=== PATIENT | male | born 1995 | race Caucasian/White ===

== ENCOUNTER 2019-11-06 20:13 | Emergency (ER) | payer BC, OTHER ==
--- NOTE | 2019-11-06 20:46 | RAD REPORT ---
EXAM DESCRIPTION: CT - Head Brain Wo Cont - 11/06/2019 8:38 pm CLINICAL HISTORY: SEIZURE Headache, drowsiness, seizure COMPARISON: HEAD BRAIN W O CONTRAST dated 05/31/2014 TECHNIQUE: All CT scans are performed using dose optimization technique as appropriate and may inclu de automated exposure control or mA/KV adjustment according to patient size. FINDINGS: No intracranial hemorrhage, hydrocephalus or extra-axial fluid collection.No areas of brai n edema or evidence of midline shift. The paranasal sinuses and mastoids are clear. The calvarium is intact. IMPRESSION: No acute intracranial abnormality.
[2019-11-06] MEDS ORDERED: NA CHLORIDE 0.9% 1,000 ML ONE (21:02)
[2019-11-06 21:20] LABS: Absolute Lymphocytes (CBC) 2.3 K/uL (0.7-4.9); Basophils % 0.6 % (0-1.3); Hematocrit 42.5 % (39.6-49.0); Lymphocytes % 34.4 % (15.3-44.8); MPV 10.2 fL (7.6-11.3); RBC Red Blood Cell Count 4.64 M/uL (4.33-5.43)
[2019-11-06 21:26] LABS: ALT/SGPT 63 U/L (12-78); AST/SGOT 52 U/L (15-37); Albumin 3.7 g/dL (3.4-5.0); Alkaline Phosphatase 82 U/L (45-117); BUN Blood Urea Nitrogen 16 mg/dL (7-18); Bicarbonate 30 mmol/L (21-32); Bilirubin Direct 0.2 mg/dL (0-0.2); Bilirubin Total 0.4 mg/dL (0.2-1.0); Glucose Level 114 mg/dL (74-106); Potassium 3.7 mmol/L (3.5-5.1); Protein, Total 6.7 g/dL (6.4-8.2); Sodium Level 141 mmol/L (136-145)
[2019-11-06 21:29] LABS: Protime INR 1.07
--- NOTE | 2019-11-06 21:30 | ER ---
Nurse's Notes [facility] Name: Costa Lujan Age: 24 yrs Sex: Male : 1995 Arrival Date: 11/06/2019 Time: 20:15 Bed 25 Private MD: Diagnosis: Epileptic seizures related to external causes;Abuse of other non-psychoactive substances Presentation: 11/05 20:20 Chief complaint: Patient states: smoked synthetic marijuana today, had not smoked in a iw while, been about a month, EMs reports pt was actively seizing on scene, tonic clonic, then pt suddenly stopped, sat up and started answering questions, no meds given, no hx of seizure, A\T\OX3 , pt states he just drove 19 hours from [place]. Coronavirus screen: At this time, the client does not indicate any symptoms associated with coronavirus-19. Ebola Screen: Patient negative for fever greater than or equal to 101.5 degrees Fahrenheit, and additional compatible Ebola Virus Disease symptoms Patient denies exposure to infectious person. Patient denies travel to an Ebola-affected area in the 21 days before illness onset. No symptoms or risks identified at this time. Initial Sepsis Screen: Does the patient meet any 2 criteria? No. Patient's initial sepsis screen is negative. Does the patient have a suspected source of infection? No. Patient's initial sepsis screen is negative. Risk Assessment: Do you want to hurt yourself or someone else? Patient reports no desire to harm self or others. Onset of symptoms was November 06, 2019. 20:20 Method Of Arrival: EMS: [facility] iw 20:20 Acuity: SABINO 3 iw 20:26 Care prior to arrival: IV initiated. 18 GA, in the right antecubital area. iw Triage Assessment: 20:15 General: Appears in no apparent distress. comfortable, Behavior is calm, cooperative. ls4 Pain: Denies pain. Neuro: Level of Consciousness is awake, alert, obeys commands, Oriented to person, place, time, situation. Historical: - Allergies: 20:25 No Known Allergies; iw - Home Meds: 20:25 None [Active]; iw - PMHx: 20:25 None; iw - PSHx: 20:25 None; iw - Immunization history:: Adult Immunizations not up to date. - Social history:: Smoking status: Patient reports the use of cigarette tobacco products, smokes one pack cigarettes per day. Patient uses alcohol, only on a social basis. street drugs. - Family history:: not pertinent. Screenin:15 Abuse screen: Denies threats or abuse. Denies injuries from another. Nutritional ls4 screening: No deficits noted. Tuberculosis screening: No symptoms or risk factors identified. Fall Risk None identified. Assessment: 20:15 General: Appears in no apparent distress. Behavior is calm, cooperative. Pain: Denies ls4 pain. Neuro: Level of Consciousness is awake, alert, obeys commands, confused, Oriented to person, place, time, situation, Seizure activity reported prior to arrival. Respiratory: Respiratory effort is even, unlabored, Respiratory pattern is regular, Breath sounds are clear bilaterally. Vital Signs: 20:15 BP 116 / 74; Pulse 59; Resp 16; Temp 98.4(O); Pulse Ox 99% on R/A; Pain 0/10; ls4 20:20 BP 107 / 77; Pulse 77; Resp 18 S; Temp 98.5(TE); Pulse Ox 97% on R/A; Weight 61.23 kg; iw Height 5 ft. 10 in. (177.80 cm); 20:20 Body Mass Index 19.37 (61.23 kg, 177.80 cm) iw [place] Coma Score: 20:15 Eye Response: spontaneous(4). Verbal Response: oriented(5). Motor Response: obeys ls4 commands(6). Total: 15. ED Course: 20:15 Patient arrived in ED. am2 20:15 Patient has correct armband on for positive identification. Bed in low position. Call ls4 light in reach. Seizure precautions initiated. Side rails up X2. equipment monitor phototypesetting on. Pulse ox on. NIBP on. Warm blanket given. Verbal reassurance given. 20:15 No provider procedures requiring assistance completed. IV discontinued, intact, ls4 bleeding controlled, No redness/swelling at site. Pressure dressing applied. 20:24 Triage completed. iw 20:25 Johnnie Ag MD is Attending Physician. tatiana 20:25 Arm band placed on. iw 20:37 CT Head Brain wo Cont In Process Unspecified. EDMS 20:50 Sophie Peguero RN is Primary Nurse. ls4 20:57 Initial lab(s) drawn, by me, sent to lab. Maintain EMS IV. Dressing intact. Good blood iw return noted. Site clean \T\ dry. Gauge \T\ site: 18 RAC. 21:29 Bakari Valdez MD is Referral Physician. [facility] Administered Medications: 20:50 Drug: NS 0.9% 1000 ml Route: IV; Rate: 1 bolus; Site: right antecubital; ls4 21:50 Follow up: IV Intake: 1000ml ls4 21:50 Follow up: IV Status: Completed infusion ls4 Intake: 21:50 IV: 1000ml; Total: 1000ml. ls4 Outcome: 21:29 Discharge ordered by . [facility] 22:11 Discharged to home ambulatory. ls4 22:11 Condition: good 22:11 Discharge instructions given to patient, Instructed on discharge instructions, follow up and referral plans. medication usage, Demonstrated understanding of instructions, follow-up care. 22:43 Patient left the ED. ls4 Signatures: Dispatcher [employer] EDMS Johnnie Ag MD MD cha Williams, Irene, RN RN Carmen Natarajan Sophie Richter, RN RN ls4 Corrections: (The following items were deleted from the chart) 20:25 20:20 BP 107 / 77; Pulse 77bpm; Resp 18bpm; Spontaneous; Pulse Ox 97% RA; 61.23 kg; iw Height 5 ft. 10 in.; BMI: 19.3; iw
--- NOTE | 2019-11-06 21:30 | EDPHYS ---
Physician Documentation [facility] Name: Costa Lujan Age: 24 yrs Sex: Male : 1995 Arrival Date: 11/06/2019 Time: 20:15 Bed 25 Private MD: ED Physician Johnnie Ag HPI: 11/05 21:22 This 24 yrs old Male presents to ER via EMS with complaints of Seizure, Drug tatiana Abuse. 21:22 The patient presents after having a single isolated seizure. Character of seizure(s): tatiana Loss of consciousness: the patient experienced loss of consciousness, Motor activity: generalized, Incontinence: none, Apnea: the patient did not experience apnea, Circulation: the patient did not experience evidence of pulse disturbance. Seizure onset: just prior to arrival. Context: the seizure(s) was witnessed, by family, occurred at home, occurred while the patient was smoking synthetic. Seizure Hx: the patient has no previous seizure history. Associated injury: The patient did not suffer any apparent associated injury. EMS care: none. The patient has not experienced similar symptoms in the past. Historical: - Allergies: 20:25 No Known Allergies; iw - Home Meds: 20:25 None [Active]; iw - PMHx: 20:25 None; iw - PSHx: 20:25 None; iw - Immunization history:: Adult Immunizations not up to date. - Social history:: Smoking status: Patient reports the use of cigarette tobacco products, smokes one pack cigarettes per day. Patient uses alcohol, only on a social basis. street drugs. - Family history:: not pertinent. ROS: 21:22 Constitutional: Negative for fever, chills, and weight loss, Eyes: Negative for injury, tatiana pain, redness, and discharge, ENT: Negative for injury, pain, and discharge, Neck: Negative for injury, pain, and swelling, Cardiovascular: Negative for chest pain, palpitations, and edema, Respiratory: Negative for shortness of breath, cough, wheezing, and pleuritic chest pain, Abdomen/GI: Negative for abdominal pain, nausea, vomiting, diarrhea, and constipation, Back: Negative for injury and pain, : Negative for injury, bleeding, discharge, and swelling, MS/Extremity: Negative for injury and deformity, Skin: Negative for injury, rash, and discoloration, Psych: Negative for depression, anxiety, suicide ideation, homicidal ideation, and hallucinations, Allergy/Immunology: Negative for hives, rash, and allergies, Endocrine: Negative for neck swelling, polydipsia, polyuria, polyphagia, and marked weight changes, Hematologic/Lymphatic: Negative for swollen nodes, abnormal bleeding, and unusual bruising. 21:22 Neuro: Positive for seizure activity. Exam: 21:22 Constitutional: This is a well developed, well nourished patient who is awake, alert, tatiana and in no acute distress. Head/Face: Normocephalic, atraumatic. Eyes: Pupils equal round and reactive to light, extra-ocular motions intact. Lids and lashes normal. Conjunctiva and sclera are non-icteric and not injected. Cornea within normal limits. Periorbital areas with no swelling, redness, or edema. ENT: Nares patent. No nasal discharge, no septal abnormalities noted. Tympanic membranes are normal and external auditory canals are clear. Oropharynx with no redness, swelling, or masses, exudates, or evidence of obstruction, uvula midline. Mucous membranes moist. Neck: Trachea midline, no thyromegaly or masses palpated, and no cervical lymphadenopathy. Supple, full range of motion without nuchal rigidity, or vertebral point tenderness. No Meningismus. Chest/axilla: Normal chest wall appearance and motion. Nontender with no deformity. No lesions are appreciated. Cardiovascular: Regular rate and rhythm with a normal S1 and S2. No gallops, murmurs, or rubs. Normal PMI, no JVD. No pulse deficits. Respiratory: Lungs have equal breath sounds bilaterally, clear to auscultation and percussion. No rales, rhonchi or wheezes noted. No increased work of breathing, no retractions or nasal flaring. Abdomen/GI: Soft, non-tender, with normal bowel sounds. No distension or tympany. No guarding or rebound. No evidence of tenderness throughout. Back: No spinal tenderness. No costovertebral tenderness. Full range of motion. Skin: Warm, dry with normal turgor. Normal color with no rashes, no lesions, and no evidence of cellulitis. MS/ Extremity: Pulses equal, no cyanosis. Neurovascular intact. Full, normal range of motion. Neuro: Awake and alert, GCS 15, oriented to person, place, time, and situation. Cranial nerves II-XII grossly intact. Motor strength 5/5 in all extremities. Sensory grossly intact. Cerebellar exam normal. Normal gait. Psych: Awake, alert, with orientation to person, place and time. Behavior, mood, and affect are within normal limits. 21:22 Musculoskeletal/extremity: DVT Exam: No signs of deep vein thrombosis. no pain, no swelling, no tenderness, negative Homans' sign noted on exam, no appreciated bluish discoloration, no erythema, no increased warmth. 21:31 ECG was reviewed by the Attending Physician. [facility] Vital Signs: 20:15 BP 116 / 74; Pulse 59; Resp 16; Temp 98.4(O); Pulse Ox 99% on R/A; Pain 0/10; ls4 20:20 BP 107 / 77; Pulse 77; Resp 18 S; Temp 98.5(TE); Pulse Ox 97% on R/A; Weight 61.23 kg; iw Height 5 ft. 10 in. (177.80 cm); 20:20 Body Mass Index 19.37 (61.23 kg, 177.80 cm) iw [place] Coma Score: 20:15 Eye Response: spontaneous(4). Verbal Response: oriented(5). Motor Response: obeys ls4 commands(6). Total: 15. MDM: 20:25 Patient medically screened. [facility] 21:24 Differential diagnosis: drug overdose, cardiac arrhythmia, seizure, TIA. Data reviewed: [facility] vital signs, nurses notes, lab test result(s), EKG, radiologic studies, CT scan. Data interpreted: import dispatcher: rate is 77 beats/min, rhythm is regular, Pulse oximetry: on room air is 97 %. Test interpretation: by ED physician or midlevel provider: ECG. Counseling: I had a detailed discussion with the patient and/or guardian regarding: the historical points, exam findings, and any diagnostic results supporting the discharge/admit diagnosis, lab results, radiology results, the need for outpatient follow up, for definitive care, a neurologist. ED course: pt at baseline, will refrain from drug use. 11/05 20: Order name: Acetaminophen; Complete Time: :28 [facility] 11/05 20:27 Order name: Basic Metabolic Panel; Complete Time: :28 [facility] 11/05 20: Order name: CBC with Diff; Complete Time: : [facility] 11/05 20:27 Order name: ETOH Level; Complete Time: 21:28 [facility] 11/05 20:27 Order name: Hepatic Function; Complete Time: 21:28 [facility] 11/05 20:27 Order name: PT-INR [facility] 11/05 20:27 Order name: Ptt, Activated [facility] 11/05 20:27 Order name: Salicylate; Complete Time: 21:21 [facility] 11/05 20:27 Order name: EKG; Complete Time: 20:27 [facility] 11/05 20:27 Order name: EKG - Nurse/Tech; Complete Time: 21:02 [facility] 11/05 20:27 Order name: IV Saline Lock; Complete Time: 20:57 [facility] 11/05 20:27 Order name: CT Head Brain wo Cont; Complete Time: 21:21 [facility] 11/05 20: Order name: Labs collected and sent; Complete Time: 20:57 [facility] 11/05 20:27 Order name: Seizure Precautions; Complete Time: 20:53 [facility] EC:31 Rate is 59 beats/min. Rhythm is regular. QRS [place] is Normal. [place] interval is normal. QRS tat[place] interval is normal. QT interval is normal. No Q waves. T waves are Normal. No ST changes noted. Clinical impression: Sinus bradycardia and No evidence of ischemia. Interpreted by me. Reviewed by me. Administered Medications: 20:50 Drug: NS 0.9% 1000 ml Route: IV; Rate: 1 bolus; Site: right antecubital; ls4 21:50 Follow up: IV Intake: 1000ml ls4 21:50 Follow up: IV Status: Completed infusion ls4 Disposition: 11/06/19 21:29 Discharged to Home. Impression: Epileptic seizures related to external causes, Abuse of other non-psychoactive substances. - Condition is Stable. - Discharge Instructions: Substance Use Disorder, Nonepileptic Seizures, Seizure, Adult, Seizure, Adult, [id number]. - Medication Reconciliation Form, Thank You Letter, Antibiotic Education, Prescription Opioid Use form. - Follow up: Private Physician; When: 2 - 3 days; Reason: Recheck today's complaints, Continuance of care, Re-evaluation by your physician. Follow up: Bakari Valdez MD; When: 2 - 3 days; Reason: Recheck today's complaints, Re-evaluation by your physician. - Problem is new. - Symptoms have improved. Signatures: Dispatcher [employer] EDMS Johnnie Ag MD MD cha Williams, Irene, RN RN iw Sophie Peguero RN RN ls4 Corrections: (The following items were deleted from the chart) 21:53 20:27 Urine Dipstick-Ancillary ordered. tatiana ls4 22:43 21:29 11/06/2019 21:29 Discharged to Home. Impression: Epileptic seizures related to ls4 external causes; Abuse of other non-psychoactive substances. Condition is Stable. Forms are Medication Reconciliation Form, Thank You Letter, Antibiotic Education, Prescription Opioid Use. Follow up: Private Physician; When: 2 - 3 days; Reason: Recheck today's complaints, Continuance of care, Re-evaluation by your physician. Follow up: Bakari Valdez; When: 2 - 3 days; Reason: Recheck today's complaints, Re-evaluation by your physician. Problem is new. Symptoms have improved. tatiana
--- NOTE | 2019-11-07 07:53 | EKG ---
Test Date: 2019-11-06 Test Time: 21:13:00 Diesel Trailer Mechanic: MARIPOSA MEASUREMENT RESULTS: Intervals: Rate: 62 MD: 178 QRSD: 102 QT: 406 QTc: 412 [place]: P: 68 MD: 178 QRS: 84 T: 64 INTERPRETIVE STATEMENTS: Normal sinus rhythm Septal infarct, age undetermined Abnormal ECG Compared to ECG 05/31/2014 04:56:53 Myocardial infarct finding now present Sinus bradycardia no longer present Early repolarization no longer present Electronically Signed On 11-07-19 07:53:08 CDT by Alexey Dang
--- NOTE | 2019-11-08 05:50 | EKG ---
Test Date: 2019-11-06 Test Time: 21:13:28 Travel Physical Therapist: MARIPOSA MEASUREMENT RESULTS: Intervals: Rate: 59 CA: 186 QRSD: 102 QT: 414 QTc: 409 [place]: P: 70 CA: 186 QRS: 85 T: 68 INTERPRETIVE STATEMENTS: Sinus bradycardia with sinus arrhythmia Septal infarct, age undetermined Abnormal ECG Compared to ECG 11/06/2019 21:13:00 Sinus rhythm no longer present Myocardial infarct finding still present Electronically Signed On 11-08-19 05:45:35 CDT by Alexey Dang
== END 2019-11-06 22:43 | disposition home or self-care (01) ==
LOC: ER 20:13
DX: F55.8 Abuse of other non-psychoactive substances (principal); F17.210 Nicotine dependence, cigarettes, uncomplicated
CPT/HCPCS: 93005 ×2; 85025; 80048; 36415; 80320; 80329 ×2; 85610; 80076; 85730; 70450; 96360; 99284; J7030

== ENCOUNTER 2020-09-08 11:51 | Emergency (ER) | payer BC ==
--- OUTSIDE RECORDS SUMMARY | 2020-09-08 11:53 | XMS REPORT | Continuity of Care Document ---
:1995 Author Organization [facility] t Address [facility] [address] [place] [address] [place] [id number] Care Team Providers Name Role Phone Unavailable Unavailable Unavailable Problems This patient has no known problems. Allergies, Adverse Reactions, Alerts This patient has no known allergies or adverse reactions. Medications This patient has no known medications. Procedures This patient has no known procedures. Results This patient has no known results.
--- NOTE | 2020-09-08 12:59 | EDPHYS ---
Physician Documentation [facility] Name: Costa Lujan Age: 25 yrs Sex: Male : 1995 Arrival Date: 09/08/2020 Time: 11:53 Bed 24 Private MD: ED Physician Minor Victor HPI: 09/08 12:55 This 25 yrs old Male presents to ER via Ambulatory with complaints of Bee kb Sting - Arm won't stop swelling. 12:55 The patient presents with localized swelling. Onset: The symptoms/episode kb began/occurred yesterday. Associated signs and symptoms: Pertinent positives: swelling, Pertinent negatives: abdominal pain, Altered mental status chest pain, dysphagia, fever, headache, hives, Light headed nausea, rash, shortness of breath, Syncope vomiting. Possible causes: wasp. At home the patient or guardian has treated the symptoms with Benadryl. Severity of symptoms: At their worst the symptoms were moderate in the emergency department the symptoms are unchanged. The patient has not experienced similar symptoms in the past. The patient has not recently seen a physician. Pt reports he was stung by red wasp yesterday and the swelling is moving up his arm. Denies pain, fever. . Historical: - Allergies: 12:19 No Known Allergies; jl7 - Home Meds: 12:19 None [Active]; jl7 - PMHx: 12:19 None; jl7 - PSHx: 12:19 None; jl7 - Immunization history:: Adult Immunizations unknown, Client reports having NOT received the Covid vaccine. - Social history:: Smoking status: Patient reports the use of cigarette tobacco products, smokes one pack cigarettes per day. ROS: 12:51 Constitutional: Negative for fever, chills, and weight loss. kb 12:51 Skin: Positive for swelling, of the right hand and right forearm. 12:51 All other systems are negative. Exam: 12:54 Constitutional: This is a well developed, well nourished patient who is awake, alert, kb and in no acute distress. Head/Face: Normocephalic, atraumatic. ENT: Moist Mucous membranes Respiratory: Respirations even and unlabored. No increased work of breathing, no retractions or nasal flaring. Neuro: Awake and alert, GCS 15, oriented to person, place, time, and situation. Moves all extremities. Normal gait. Psych: Awake, alert, with orientation to person, place and time. Behavior, mood, and affect are within normal limits. 12:54 Musculoskeletal/extremity: Extremities: grossly normal except: noted in the right forearm and right hand: swelling, ROM: intact in all extremities, Circulation is intact in all extremities. Sensation intact. Compartment Syndrome exam of affected extremity: no pain, with active ROM, no numbness, no tingling, no sensation deficit, no palor, no weak pulses. 12:54 Skin: Appearance: normal except for affected area, Color: normal in color, Temperature: normal temperature, swelling, noted on the right forearm and right hand, that are moderate. Vital Signs: 12:17 BP 139 / 92; Pulse 67; Resp 16; Temp 97.9; Pulse Ox 98% on R/A; Weight 58.97 kg; Height jl7 5 ft. 11 in. (180.34 cm); Pain 0/10; 12:37 BP 131 / 89; Pulse 63; Resp 16; Pulse Ox 100% on R/A; vg1 12:17 Body Mass Index 18.13 (58.97 kg, 180.34 cm) jl7 MDM: 12:21 Patient medically screened. kb 12:49 Data reviewed: vital signs, nurses notes. Data interpreted: Pulse oximetry: on room air kb is 100 %. Interpretation: normal. Counseling: I had a detailed discussion with the patient and/or guardian regarding: the historical points, exam findings, and any diagnostic results supporting the discharge/admit diagnosis, the need for outpatient follow up, a family practitioner, to return to the emergency department if symptoms worsen or persist or if there are any questions or concerns that arise at home. Administered Medications: 13:07 Drug: Pepcid (famotidine) 20 mg Route: PO; vg1 13:08 Follow up: Response: Medication administered at discharge. vg1 13:08 Drug: Decadron (dexamethasone) 10 mg Route: IM; Site: right deltoid; vg1 13:08 Follow up: Response: Medication administered at discharge. vg1 Disposition: 09/09 08:40 Co-signature as Attending Physician, Minor Victor MD I agree with the assessment and kdr plan of care. Disposition Summary: 09/08/20 12:58 Discharge Ordered Location: Home kb Condition: Stable kb Diagnosis - Insect allergy status kb - Insect bite (nonvenomous) of right hand kb Followup: kb - With: Emergency Department - When: As needed - Reason: Worsening of condition Followup: kb - With: Private Physician - When: 2 - 3 days - Reason: Recheck today's complaints, Continuance of care, Re-evaluation by your physician Discharge Instructions: - Discharge Summary Sheet kb - Bee, Wasp, or Hornet Sting, Adult kb - Allergies, Pediatric kb Forms: - Medication Reconciliation Form kb - Thank You Letter kb - Antibiotic Education kb - Prescription Opioid Use kb Prescriptions: - Cephalexin 500 mg Oral Capsule - take 1 capsule by ORAL route every 8 hours for 10 days; 30 capsule; Refills: 0, kb Product Selection Permitted - Pepcid 20 mg Oral Tablet - take 1 tablet by ORAL route every 12 hours for 5 days; 10 tablet; Refills: 0, kb Product Selection Permitted - Prednisone 20 mg Oral Tablet - take 1 tablet by ORAL route once daily for 5 days; 5 tablet; Refills: 0, kb Product Selection Permitted Signatures: Lina Jean FNP-C CHEN-Minor Dickerson MD MD kdr Leal, Jahala, RN RN jl7 Jewell Zabala RN RN vg1
--- NOTE | 2020-09-08 12:59 | ER ---
Nurse's Notes [facility] Name: Costa Lujan Age: 25 yrs Sex: Male : 1995 Arrival Date: 09/08/2020 Time: 11:53 Bed 24 Private MD: Diagnosis: Insect allergy status;Insect bite (nonvenomous) of right hand Presentation: 09/08 12:17 Chief complaint: Patient states: Red wasp sting yesterday to right pointer finger, jl7 swelling has increased past the elbow since last night, denies pain, denies SOB. Coronavirus screen: Client denies travel out of the [place] in the last 14 days. At this time, the client does not indicate any symptoms associated with coronavirus-19. Ebola Screen: No symptoms or risks identified at this time. Initial Sepsis Screen: Does the patient meet any 2 criteria? No. Patient's initial sepsis screen is negative. Does the patient have a suspected source of infection? No. Patient's initial sepsis screen is negative. Risk Assessment: Do you want to hurt yourself or someone else? Patient reports no desire to harm self or others. Onset of symptoms was September 07, 2020. 12:17 Method Of Arrival: Ambulatory jl7 12:17 Acuity: SABINO 4 jl7 13:09 Anaphylaxis evaluation, no signs or symptoms of anaphylaxis were noted. vg1 Historical: - Allergies: 12:19 No Known Allergies; jl7 - Home Meds: 12:19 None [Active]; jl7 - PMHx: 12:19 None; jl7 - PSHx: 12:19 None; jl7 - Immunization history:: Adult Immunizations unknown, Client reports having NOT received the Covid vaccine. - Social history:: Smoking status: Patient reports the use of cigarette tobacco products, smokes one pack cigarettes per day. Screenin:37 Abuse screen: Denies threats or abuse. Nutritional screening: No deficits noted. vg1 Tuberculosis screening: No symptoms or risk factors identified. Fall Risk No fall in past 12 months (0 pts). No secondary diagnosis (0 pts). No IV (0 pts). Ambulatory Aid- None/Bed Rest/Nurse Assist (0 pts). Gait- Normal/Bed Rest/Wheelchair (0 pts) Mental Status- Oriented to own ability (0 pts). Total Han Fall Scale indicates No Risk (0-24 pts). Assessment: 12:37 General: Appears in no apparent distress. comfortable, Behavior is calm, cooperative. vg1 Pain: Denies pain. Neuro: Level of Consciousness is awake, alert, obeys commands, Oriented to person, place, time, situation. Cardiovascular: Patient's skin is warm and dry. Respiratory: Airway is patent Respiratory effort is even, unlabored, Breath sounds are clear bilaterally. GI: No signs and/or symptoms were reported involving the gastrointestinal system. : No signs and/or symptoms were reported regarding the genitourinary system. EENT: No signs and/or symptoms were reported regarding the EENT system. Derm: Skin is intact, Skin is pink, warm \T\ dry. Musculoskeletal: Circulation, motion, and sensation intact. Swelling present in right hand and dorsal aspect of right forearm. 13:08 Reassessment: Patient appears in no apparent distress at this time. No changes from vg1 previously documented assessment. Patient and/or family updated on plan of care and expected duration. Pain level reassessed. Patient is alert, oriented x 3, equal unlabored respirations, skin warm/dry/pink. Vital Signs: 12:17 BP 139 / 92; Pulse 67; Resp 16; Temp 97.9; Pulse Ox 98% on R/A; Weight 58.97 kg; Height jl7 5 ft. 11 in. (180.34 cm); Pain 0/10; 12:37 BP 131 / 89; Pulse 63; Resp 16; Pulse Ox 100% on R/A; vg1 12:17 Body Mass Index 18.13 (58.97 kg, 180.34 cm) jl7 ED Course: 11:53 Patient arrived in ED. wm 12:19 Triage completed. jl7 12:19 Arm band placed on right wrist. jl7 12:21 Lina Jean [facility]C [facility] kb 12:21 Minor Victor MD is Attending Physician. kb 12:29 Jewell Zabala, RONEY is Primary Nurse. vg1 12:37 Patient has correct armband on for positive identification. Bed in low position. Call vg1 light in reach. Side rails up X 1. 12:37 No provider procedures requiring assistance completed. vg1 13:09 Patient did not have IV access during this emergency room visit. vg1 Administered Medications: 13:07 Drug: Pepcid (famotidine) 20 mg Route: PO; vg1 13:08 Follow up: Response: Medication administered at discharge. vg1 13:08 Drug: Decadron (dexamethasone) 10 mg Route: IM; Site: right deltoid; vg1 13:08 Follow up: Response: Medication administered at discharge. vg1 Outcome: 12:58 Discharge ordered by . homa 13:09 Discharged to home ambulatory. vg1 13:09 Condition: stable 13:09 Discharge instructions given to patient, Instructed on discharge instructions, follow up and referral plans. medication usage, Demonstrated understanding of instructions, follow-up care, medications, Prescriptions given X 3. 13:09 Patient left the ED. vg1 Signatures: Lina Jean, CHEN-C CHEN-Dio Montague RN RN jl7 Jewell Zabala RN RN vg1 Satci Harris
[2020-09-08 13:19] VITALS: TEMP 97.9
[2020-09-08 13:22] VITALS: BP 131/89; O2SAT 100
[2020-09-08] MEDS ORDERED: FAMOTIDINE 20 MG TAB ONE (13:23)
[2020-09-08] MEDS ORDERED: dexAMETHasone 10 MG/ML VIAL ONE (13:23)
== END 2020-09-08 13:09 | disposition home or self-care (01) ==
LOC: ER 11:51
DX: S60.561A Insect bite (nonvenomous) of right hand, initial encounter (principal); Z91.038 Other insect allergy status; F17.210 Nicotine dependence, cigarettes, uncomplicated
CPT/HCPCS: J1100

== ENCOUNTER 2023-02-06 09:36 | Emergency (ER) | payer SELFPAY ==
--- OUTSIDE RECORDS SUMMARY | 2023-02-06 09:39 | XMS REPORT | Continuity of Care Document ---
:1995 Author Organization [facility] t Address [address] [place] [address] [place] [id number] Care Team Providers Name Role Phone Pcp, Patient Does Not Have A Primary Care Physician +[id number] ALLEGRA CHENEY Attending Clinician Unavailable Problems Condition Condition Condition Status Onset Resolution Last Treating Co mments Source Name Details Category Date Date Treatment Clinician Date Left flank Left flank Disease Active 2022-03 U nivers pain pain 04-06 ity of 00:00: [address] Allergies, Adverse Reactions, Alerts Allergy Allergy Status Severity Reaction(s) Onset Inactive Treating Comm ents Source Name Type Date Date Clinician NO KNOWN Drug Active Univers ALLERGIE Class ity of [facility] Social History Social Habit Start Date Stop Date Quantity Comments Source Sexual orientation [facility] Sex Assigned At [birth year] [facility] 00:00:00 00:00:00 [facility] Smoking Status Start Date Stop Date Source Tobacco smoking consumption [facility] Medications Ordered Filled Start Stop Current Ordering Indication Dosage Frequency Signature Comments Components Source Medication Medication Date Date Medication? Clinician (SIG) Name Name iopamidol 2022-03- No [id number] 75mL 75 mL, Univers (ISOVUE 04-06 Intravenou ity o f 370-500 mL) 07:30: 07:30 s, ONCE, 1 [place] injection 00 :00 dose, On Medica l 75 mL [place] 02/04/23 at 0130, Routine ketorolac 2022-03- No 15mg 15 mg, Unive rs (TORADOL) 04-06 Slow IV ity of injection 06:00: 05:22 Push, [place] 15 mg 00 :00 ONCE, 1 Medical dose, On Branch 02/04/23 at 0000, ZACKARY NaCl 0.9% 2022-03 1000mL at 999 Uni vers (NS) bolus 04-06 mL/hr, ity of infusion 06:00: 07:00 1,000 mL, [place] as 1,000 mL 00 :00 IV Medical Infusion, Branch ONCE, 1 dose, On 02/04/23 at 0000, ZACKARY Vital Signs Vital Name Observation Time Observation Value Comments Source Systolic blood 2023-02-04 09:00:00 99 mm[Hg] [facility] Diastolic blood 2023-02-04 09:00:00 72 mm[Hg] [facility] Heart rate 2023-02-04 09:00:00 63 /min [facility] Respiratory rate 2023-02-04 09:00:00 16 /min [facility] Oxygen saturation in 2023-02-04 09:00:00 97 /min [facility] Arterial blood by [facility] Pulse oximetry [place] Body temperature 2023-02-04 05:08:00 36.72 Lucy [facility] Body height 2023-02-04 05:08:[address] [facility] Body weight 2023-02-04 05:08:[address] [facility] BMI 2023-02-04 05:08:00 20.09 kg/m2 [facility] Procedures Procedure Date / Time Performing Clinician Source Performed URINE DRUG (IMMUNOASSAY) 2023-02-04 08:14:00 Allegra Cheney [facility] Medical [facility] SCREEN W/O REFLEX URINALYSIS 2023-02-04 08:13:00 Allegra Cheney o f [facility] US TESTICULAR TORSION 2023-02-04 06:36:00 Allegra Cheney [facility] CT ABDOMEN PELVIS W 2023-02-04 06:32:15 Allegra Cheney [facility] COMP. METABOLIC PANEL 2023-02-04 05:16:00 Allegra Cheney [facility] ([id number]) Medical Branch CBC WITH DIFF 2023-02-04 05:16:00 Allegra Cheney [place] o f [facility] Branch NOTICE OF PRIVACY 2023-02-04 04:53:24 Doctor Unassigned, No Univ [facility] PRACTICES Name Medical Branch CONSENT/REFUSAL FOR 2023-02-04 04:52:33 [facility] Name Medical Branch Encounters Start End Encounter Admission Attending Care Care Encounter Source Date/Time Date/Time Type Type Clinicians Facility Department ID 2023-02-03 2023-02-04 Emergency X SHRAVAN [facility] ERT [id number] Univers 23:01:00 03:52:00 ALLEGRA waller [facility] Branch 2023-02-03 2023-02-04 Emergency Shravan [facility] [id number] Univers 23:01:00 03:52:00 Allegra MATA [id number] i ty [facility] [id number] [facility] [id number] [place] [address] Branch Results Test Description Test Time Test Comments Results Result Comments Source CBC WITH DIFF 2023-02-04 06:17:13 Test Item Value Reference Range Interpretation Comme nts WBC (test code = 6690-2) 11.80 See_Comment H [A utomated message] The system which ge nerated this result transmit mónica reference range: 4.20 - 1 0.70 10*3/?L. The reference r tom was not used to interpr et this result as normal/abnor mal. RBC (test code = 789-8) 4.71 See_Comment [Au tomated message] The system which ge nerated this result transmit mónica reference range: 4.26 - 5 .52 10*6/?L. The reference r tom was not used to interpr et this result as normal/abnor mal. HGB (test code = 718-7) 14.8 g/dL 12.2-16.4 HCT (test code = 4544-3) 43.0 % 38.4-49.3 MCV (test code = 787-2) 91.3 fL 81.7-95.6 MCH (test code = 785-6) 31.4 pg 26.1-32.7 MCHC (test code = 786-4) 34.4 g/dL 31.2-35.0 RDW-SD (test code = 99893-4) 45.2 fL 38.5-51.6 RDW-CV (test code = 788-0) 13.3 % 12.1-15.4 PLT (test code = 777-3) 238 See_Comment [Au tomated message] The system which ge nerated this result transmit mónica reference range: 150 - 32 8 10*3/?L. The reference range was not used to interpret th is result as normal/abnormal . MPV (test code = 71185-4) 11.1 fL 9.8-13.0 NRBC/100 WBC (test code = 0.0 See_Comment [ Automated message] The [id number]) system which ge nerated this result transmit mónica reference range: 0.0 - 10 .0 /100 WBCs. The reference r tom was not used to interpr et this result as normal/abnor mal. NRBC x10^3 (test code = See_Comment [Au tomated message] The [id number]) system which ge nerated this result transmit mónica reference range: 10*3/?L. The reference range was not u sed to interpret this result as normal/abnormal . GRAN MAT (NEUT) % (test code 47.7 % = 770-8) IMM GRAN % (test code = 0.30 % 4629591535) LYMPH % (test code = 736-9) 41.9 % MONO % (test code = 5905-5) 8.1 % EOS % (test code = 713-8) 1.6 % BASO % (test code = 706-2) 0.4 % GRAN MAT x10^3(ANC) (test 5.63 10*3/uL 1.99-6.95 code = 2705829428) IMM GRAN x10^3 (test code = 0.03 10*3/uL 0.00-0.06 3065901444) LYMPH x10^3 (test code = 4.95 10*3/uL 1.09-3.23 H 731-0) MONO x10^3 (test code = 0.95 10*3/uL 0.36-1.02 742-7) EOS x10^3 (test code = 0.19 10*3/uL 0.06-0.53 711-2) BASO x10^3 (test code = 0.05 10*3/uL 0.01-0.09 704-7) REACT LYMPHS (test code = Rare 8584589110) PLT ESTIMATE (test code = Normal Normal 9317-9) Lab Interpretation (test Abnormal code = 31853-1) [facility]67637[facility]2023-02-04 05:38:23 Test Item Value Reference Range Interpretation Comments NA (test code = 140 mmol/L 135-145 4199831475) K (test code = 3.9 mmol/L 3.5-5.0 3527838523) CL (test code = 104 mmol/L 98-108 1840921529) CO2 TOTAL (test code = 27 mmol/L 23-31 0547177526) AGAP (test code = 9 2-16 6740190975) BUN (test code = 20 mg/dL 7-23 3166077394) GLUCOSE (test code = 142 mg/dL 70-110 H 9629631014) CREATININE (test code = 0.87 mg/dL 0.60-1.25 7572514320) TOTAL BILI (test code = 0.5 mg/dL 0.1-1.9 4202356371) CALCIUM (test code = 9.8 mg/dL 8.6-10.6 2814161448) T PROTEIN (test code = 6.9 g/dL 6.3-8.2 8574634589) ALBUMIN (test code = 4.4 g/dL 3.5-5.0 4866709383) ALK PHOS (test code = 55 U/L 34-122 0085128673) ALTv (test code = 29 U/L 5-50 1742-6) AST(SGOT) (test code = 36 U/L 13-40 8724013254) eGFR (test code = 120.5 mL/min/1.73m2 CKD-EPI e GFR 75710-2) (2020). Assumin g creatinine has been stable day-to-d ay for at least th ree months, the eGF R indicates Categ ory G1 (>= 90 mL/min/1.73 m2) Lab Interpretation (test Abnormal code = 89370-7) [facility]
[2023-02-06] MEDS ORDERED: NA CHLORIDE 0.9% 1,000 ML ONE (10:04)
[2023-02-06] MEDS ORDERED: KETOROLAC 30 MG/ML INJ ONE (10:04)
[2023-02-06 10:08] LABS: Absolute Lymphocytes (CBC) 1.5 K/uL (0.7-4.9); Hematocrit 45.3 % (39.6-49.0); Lymphocytes % 14.7 % (15.3-44.8); MCV 91.7 fL (80-100); MPV 8.8 fL (7.6-11.3); Platelets 224 thou/uL (152-406); RBC Red Blood Cell Count 4.94 M/uL (4.33-5.43)
[2023-02-06 10:25] LABS: Albumin 4.3 g/dL (3.4-5.0); Bilirubin Total 0.5 mg/dL (0.2-1.0); Protein, Total 7.5 g/dL (6.4-8.2)
[2023-02-06 10:26] LABS: Potassium 4.3 mEq/L (3.5-5.1)
--- NOTE | 2023-02-06 10:29 | RAD REPORT ---
EXAM DESCRIPTION: CT - Stone Protocol - 02/06/2023 10:04 am CLINICAL HISTORY: FLANK PAIN COMPARISON: No comparisons TECHNIQUE: Thin cut axial CT imaging of the abdomen and pelvis was performed without IV contrast. Mu ltiplanar reformats were generated and reviewed. All CT scans are performed using dose optimization technique as appropriate and may include automated exposure control or mA/KV adjustment according to patient size. FINDINGS: No suspicious findings in the lung bases. The liver, spleen, adrenal glands, and pancreas show no suspicious findings. Gallbladder and biliary tree are also without suspicious finding. Symmetric renal contour, without suspicious parenchymal findings within limits of noncontrast techniq ue. No right hydroureteronephrosis. Mild left hydroureteronephrosis. 4 millimeter left vesicoureteral junction calculus. No dilated bowel loops or bowel wall thickening. No free air, free fluid or inflammatory stranding. N o hernia, mass or bulky lymphadenopathy. The urinary bladder is without significant finding. No suspicious bony findings. IMPRESSION: Mild left hydroureteronephrosis. 4 millimeter left vesicoureteral junction calculus. The findings were communicated to Johnnie Ag on 02/06/2023 at 10:25 hours.
[2023-02-06] MEDS ORDERED: MAGNESIUM SULFATE 1 gm IVPB 1 GM/100 ML BAG IV ONE (10:41)
[2023-02-06] MEDS ORDERED: TAMSULOSIN 0.4 MG SR CAP ONE (10:41)
[2023-02-06 10:51] LABS: Specific Gravity 1.025 (1.005-1.030); Urine Bilirubin 1+ (Negative); Urine Blood 3+ (Negative); Urine Clarity Clear (Clear); Urine Color Yellow (Yellow); Urine Glucose Negative (Negative); Urine Protein 1+ (Negative); Urine Urobilinogen 0.2 mg/dL (0.2-1.0)
[2023-02-06 10:53] LABS: Urine RBC >50 /HPF (None Seen)
--- NOTE | 2023-02-06 11:09 | EDPHYS ---
Physician Documentation [facility] Name: Costa Lujan Age: 27 yrs Sex: Male : 1995 Arrival Date: 02/06/2023 Time: 09:36 Bed 15 Private MD: ED Physician Donaldo Norman HPI: 02/06 10:02 This 27 yrs old Male presents to ER via Unassigned with complaints of Low Back Pain, kb Flank Pain. 10:02 Patient is a 27-year-old male with no medical history who presents for left flank pain kb that started 4 days ago. States it started in the morning and lasted all day the first day, started up again the next night, did not have any pain yesterday and then today the pain has been really sharp. Denies any associated symptoms including fever, nausea, vomiting, diarrhea, urinary symptoms. States he was seen at [place] [facility] on Sunday, had urinalysis, serum labs, CT and ultrasound that were all normal.. Historical: - Allergies: 10:03 No Known Allergies; mb9 - Home Meds: 10:03 None [Active]; mb9 - PMHx: 10:03 None; mb9 - PSHx: 10:03 None; mb9 - Immunization history:: Adult Immunizations up to date. - Social history:: Smoking status: Patient reports the use of cigarette tobacco products, smokes one pack cigarettes per day. ROS: 10:02 Constitutional: Negative for fever, chills, and weight loss, kb 10:02 Back: Positive for flank pain, on the left, 10:02 All other systems are negative, Exam: 10:02 Constitutional: This is a well developed, well nourished patient who is awake, alert, kb and in no acute distress. Head/Face: Normocephalic, atraumatic. ENT: Moist Mucous membranes Cardiovascular: Regular rate Respiratory: Respirations even and unlabored. No increased work of breathing. Talking in full sentences Abdomen/GI: Soft, non-tender. No distention Back: No spinal tenderness. No costovertebral tenderness. Full range of motion. Skin: Warm, dry with normal turgor. Normal color. MS/ Extremity: Pulses equal, no cyanosis. Neurovascular intact. Full, normal range of motion. Neuro: Awake and alert, GCS 15, oriented to person, place, time, and situation. Moves all extremities. Normal gait. Vital Signs: 10:01 BP 130 / 84; Pulse 74; Resp 18; Temp 97.5; Pulse Ox 100% ; Weight 63.5 kg; Height 5 ft. mb9 10 in. ; Pain 8/10; 10:57 BP 129 / 83; Pulse 75; Resp 16; Pulse Ox 100% on R/A; mb9 10:01 Body Mass Index 20.09 (63.50 kg, 177.8 cm) mb9 10:01 Pain Scale: Adult mb9 MDM: 09:47 Patient medically screened. 10:02 Differential diagnosis: nephrolithiasis, pyelonephritis, UTI, diverticulitis, kb pancreatitis. Data reviewed: vital signs, nurses notes. 11:08 Counseling: I had a detailed discussion with the patient and/or guardian regarding the historical points, exam findings, and any diagnostic results supporting the discharge/admit diagnosis, lab results, radiology results, the need for outpatient follow up, a urologist, to return to the emergency department if symptoms worsen or persist or if there are any questions or concerns that arise at home. 11:10 I considered the following discharge prescriptions or medication management in the emergency department Antibiotics: At this time antibiotics are not recommended. 02/06 09:47 Order name: CBC with Diff; Complete Time: 10:19 kb 02/06 09:47 Order name: CMP; Complete Time: 10:31 kb 02/06 09:47 Order name: Lipase; Complete Time: 10:31 kb 02/06 10:51 Order name: Urinalysis w/ reflexes; Complete Time: 10:54 EDMS 02/06 09:47 Order name: CT Stone Protocol; Complete Time: 10:31 kb 02/06 09:47 Order name: IV Saline Lock; Complete Time: 10:04 kb 02/06 09:47 Order name: Labs collected and sent; Complete Time: 10:04 kb Administered Medications: 10:04 Drug: NS 0.9% IV 1000 ml IV at 1 bolus Per protocol; 1000 mL bolus Route: IV; Rate: 1 mb9 bolus; Site: right antecubital; 11:32 Follow up: Response: No adverse reaction; IV Status: Completed infusion mb9 10:04 Drug: TORadol - Ketorolac IVP 15 mg IVP once Route: IVP; Site: right antecubital; mb9 10:36 Follow up: Response: No adverse reaction mb9 10:35 Drug: Magnesium Sulfate IVPB 1 grams IVPB once over 1 hrs Route: IVPB; Infused Over: 1 mb9 hrs; Site: right antecubital; 11:32 Follow up: Response: No adverse reaction; IV Status: Completed infusion mb9 10:35 Drug: Flomax PO 0.4 mg PO once Route: PO; mb9 10:57 Follow up: Response: No adverse reaction mb9 Disposition: 15:28 I was immediately available on-site in the Emergency Department for consultation in the ms3 care of the patient. Disposition Summary: 02/06/23 11:08 Discharge Ordered Notes: Location: Home kb Condition: Stable kb Diagnosis - Calculus of ureter kb Followup: kb - With: Emergency Department - When: As needed - Reason: Worsening of condition Followup: kb - With: Private Physician - When: 2 - 3 days - Reason: Recheck today's complaints, Continuance of care, Re-evaluation by your physician Followup: kb - With: Karl Amezcua MD - When: 2 - 3 days - Reason: Recheck today's complaints Discharge Instructions: - Kidney Stones, [id number] kb - Dietary Guidelines to Help Prevent Kidney Stones kb - Discharge Summary Sheet mb9 Forms: - Medication Reconciliation Form kb - Thank You Letter kb - Antibiotic Education kb - Prescription Opioid Use kb - Patient Portal Instructions kb - Leadership Thank You Letter kb - Work release form mb9 Prescriptions: - Flomax 0.4 mg Oral capsule - take 1 capsule ORAL route daily; 10 capsule; Refills: 0, Product Selection kb Permitted - Zofran 4 mg Oral tablet - take 1 tablet ORAL route every 6 hours As needed; 10 tablet; Refills: 0, kb Product Selection Permitted - Diclofenac Sodium 75 mg Oral tablet, delayed release (enteric coated) - take 1 tablet ORAL route 2 times per day As needed; 30 tablet; Refills: 0, kb Product Selection Permitted - Tramadol 50 mg Oral Tablet - take 1 tablet ORAL route every 8 hours as needed; 12 tablet; Refills: 0, kb Product Selection Permitted Signatures: Dispatcher [employer] Lina Baltazar, Donaldo Muñoz DO DO ms3 Ursula Toledo RN RN mb9 Corrections: (The following items were deleted from the chart) 10:54 09:48 Urinalysis+U.LAB.BALWINDERZ ordered. EDMS EDMS
--- NOTE | 2023-02-06 11:09 | ER ---
Nurse's Notes [facility] Name: Costa Lujan Age: 27 yrs Sex: Male : 1995 Arrival Date: 02/06/2023 Time: 09:36 Bed 15 Private MD: Diagnosis: Calculus of ureter Presentation: 02/06 10:01 Chief complaint: Patient states: "I've had left flank pain since Sunday. No mb9 N/V/D/fever and no burning with urination". Coronavirus screen: Vaccine status: Patient reports being unvaccinated. Ebola Screen: No symptoms or risks identified at this time. Initial Sepsis Screen: Does the patient meet any 2 criteria? No. Patient's initial sepsis screen is negative. Does the patient have a suspected source of infection? No. Patient's initial sepsis screen is negative. Risk Assessment: Do you want to hurt yourself or someone else? Patient reports no desire to harm self or others. Onset of symptoms was February 06, 2023. 10:01 Acuity: SABINO 3 mb9 10:01 Method Of Arrival: Ambulatory mb9 Triage Assessment: 10:03 General: Appears in no apparent distress. Behavior is calm, cooperative. Pain: mb9 Complains of pain in back Pain radiates to left flank Pain currently is 8 out of 10 on a pain scale. Quality of pain is described as sharp, shooting, stabbing, Pain began 2-3 days ago. Is continuous. EENT: No signs and/or symptoms were reported regarding the EENT system. Neuro: Worley Agitation-Sedation Scale (RASS): 0 - Alert and Calm Level of Consciousness is awake, alert, obeys commands, Oriented to person, place, time, situation, Appropriate for age. Cardiovascular: Patient's skin is warm and dry. Respiratory: Airway is patent Respiratory effort is even, unlabored, Respiratory pattern is regular, symmetrical. GI: Patient currently denies diarrhea, nausea, vomiting. : Denies burning with urination. Derm: Skin is pink, warm \\T\\ dry. Musculoskeletal: Range of motion: intact in all extremities. Historical: - Allergies: 10:03 No Known Allergies; mb9 - Home Meds: 10:03 None [Active]; mb9 - PMHx: 10:03 None; mb9 - PSHx: 10:03 None; mb9 - Immunization history:: Adult Immunizations up to date. - Social history:: Smoking status: Patient reports the use of cigarette tobacco products, smokes one pack cigarettes per day. Screenin:15 [facility] ED Fall Risk Assessment (Adult) History of falling in the last 3 months, mb9 including since admission No falls in past 3 months (0 pts) Confusion or Disorientation No (0 pts) Intoxicated or Sedated No (0 pts) Impaired Gait No (0 pts) Mobility Assist Device Used No (0 pt) Altered Elimination No (0 pt) Score/Fall Risk Level 0 - 2 = Low Risk Oriented to surroundings, Maintained a safe environment, Educated pt \\T\\ family on fall prevention, incl call for assistance when getting out of bed. Abuse screen: Denies threats or abuse. Nutritional screening: No deficits noted. Tuberculosis screening: No symptoms or risk factors identified. Assessment: 10:04 Reassessment: pt taken to CT via wheelchair. mb9 10:57 Reassessment: Patient appears in no apparent distress at this time. Patient and/or mb9 family updated on plan of care and expected duration. Pain level reassessed. Patient is alert, oriented x 3, equal unlabored respirations, skin warm/dry/pink. Patient states feeling better. Patient states symptoms have improved. 11:11 Reassessment: Discharge pending completion of IV fluids. mb9 Vital Signs: 10:01 BP 130 / 84; Pulse 74; Resp 18; Temp 97.5; Pulse Ox 100% ; Weight 63.5 kg; Height 5 ft. mb9 10 in. ; Pain 8/10; 10:57 BP 129 / 83; Pulse 75; Resp 16; Pulse Ox 100% on R/A; mb9 10:01 Body Mass Index 20.09 (63.50 kg, 177.8 cm) mb9 10:01 Pain Scale: Adult mb9 ED Course: 09:37 Patient arrived in ED. rg4 09:46 Donaldo Norman DO is Attending Physician. ms3 09:47 Lina Jean FNP-C is PHCP. kb 09:48 Ursula Toledo, RONEY is Primary Nurse. mb9 10:03 Triage completed. mb9 10:03 Arm band placed on. mb9 10:04 CT Stone Protocol In Process Unspecified. EDMS 10:04 Inserted saline lock: 20 gauge in right antecubital area, using aseptic technique. mb9 10:04 CBC with Diff Sent. mb9 10:04 CMP Sent. mb9 10:04 Lipase Sent. mb9 10:14 Placed in gown. Bed in low position. Call light in reach. Side rails up X 1. Client mb9 placed on continuous cardiac and pulse oximetry monitoring. NIBP monitoring applied. 10:15 No provider procedures requiring assistance completed. mb9 11:10 Karl Amezcua MD is Referral Physician. kb 11:25 IV discontinued, intact, bleeding controlled, No redness/swelling at site. Pressure mb9 dressing applied. Administered Medications: 10:04 Drug: NS 0.9% IV 1000 ml IV at 1 bolus Per protocol; 1000 mL bolus Route: IV; Rate: 1 mb9 bolus; Site: right antecubital; 11:32 Follow up: Response: No adverse reaction; IV Status: Completed infusion mb9 10:04 Drug: TORadol - Ketorolac IVP 15 mg IVP once Route: IVP; Site: right antecubital; mb9 10:36 Follow up: Response: No adverse reaction mb9 10:35 Drug: Magnesium Sulfate IVPB 1 grams IVPB once over 1 hrs Route: IVPB; Infused Over: 1 mb9 hrs; Site: right antecubital; 11:32 Follow up: Response: No adverse reaction; IV Status: Completed infusion mb9 10:35 Drug: Flomax PO 0.4 mg PO once Route: PO; mb9 10:57 Follow up: Response: No adverse reaction mb9 Medication: 10:15 VIS not applicable for this client. mb9 Outcome: 11:08 Discharge ordered by . kb 11:25 Discharged to home ambulatory, mb9 11:25 Condition: stable 11:25 Discharge instructions given to patient, Instructed on discharge instructions, follow up and referral plans. Demonstrated understanding of instructions, follow-up care, medications, Prescriptions given X 4, 11:32 Patient left the ED. mb9 Signatures: Dispatcher [employer] EDMS Lina Jean, PROTOTYPE DEICER ASSEMBLER-C PROTOTYPE DEICER ASSEMBLER-Khalif Novoa em1 Kymberly Zabala rg4 Donaldo Norman, DO SCHNEIDER ms3 Ursula Toledo RN RN mb9 Corrections: (The following items were deleted from the chart) 10:54 10:44 Urinalysis+U.LAB.BRZ drawn and sent. em1 EDMS
[2023-02-06 11:46] VITALS: TEMP 97.5; O2SAT 100
[2023-02-06 11:52] VITALS: BP 129/83
== END 2023-02-06 11:32 | disposition home or self-care (01) ==
LOC: ER 09:36
DX: N20.1 Calculus of ureter (principal)
CPT/HCPCS: 36415; 74176; 76377; 80053; 81003; 83690; 85025; 96361; 96365; 96375; 99284; J3475; J7030